=== PATIENT | female | born 1945 | race Caucasian/White ===

== ENCOUNTER 2018-10-26 08:06 | Inpatient (IN) | payer MEDICARE, BC ==
[2018-10-26] VITALS (10 sets, daily range): BP systolic 104–123; BP diastolic 52–81
[~2018-10-26] VITALS: Ht 160 cm; Wt 68.0 kg
[~2018-10-26 08:06] MED LIST: CEFAZOLIN SODIUM/DEXTROSE,ISO 50 ML IV ONE
[2018-10-26] MEDS ORDERED: ANESTHESIA TRAY IN PYXIS 1 EA TRAY MC ONE (08:54)
[2018-10-26] MEDS ORDERED: LIDOCAINE HCL/PF 1% 30 ML SDV ONE (08:54)
[2018-10-26] MEDS ORDERED: BACITRACIN 50000 UNITS/VIAL ONE (08:54)
[2018-10-26] MEDS ORDERED: BUPIVACAINE 0.5 % PF 150 MG/30 ML VIAL ONE (08:54)
[2018-10-26] MEDS ORDERED: BUPIVACAINE 0.25% 75 MG/30 ML VIAL ONE (09:53)
[2018-10-26] MEDS ORDERED: MIDAZOLAM HCL 2 MG/2ML VIAL ONE (09:53)
[2018-10-26] MEDS ORDERED: VASOPRESSIN INJ 20 UNIT/ML VIAL ONE (10:56)
[2018-10-26] MEDS ORDERED: ALBUMIN 25% 50 ML IV ONE ×2 (10:56→11:13)
[2018-10-26] MEDS ORDERED: TRANEXAMIC ACID 1,500 MG in IV NS 0.9% 50 ML IV ONE (11:00)
[2018-10-26] MEDS ORDERED: ALBUMIN 5% 250 ML IV ONE (11:11)
[2018-10-26] MEDS ORDERED: HYDROMORPHONE 1 MG/1 ML DISP.SYRIN IV PRN ×2 (13:00→13:30)
[2018-10-26] MEDS ORDERED: HYDROCODONE/APAP 10/325MG 1 EA TABLET PO PRN (13:00)
--- NOTE | 2018-10-26 13:00 | NUR ---
M/S RN - Assessment Received patient from recovery, A/O x 4, S/P Reverse left total shoulder arthroplasty by Dr. Johnson, left shoulder dressing is clean and dry, sling in place. Left arm is warm to touch, sensation is intact. Patient oriented to room and use of call light. Patient came in with no personal belongings. Skin assessment done and documented, photos taken. Patient independent with bed mobility. Saline lock on the right hand with no signs of infiltration. Post op orders noted and carried out. All needs anticipated and met. Possible discharge home tomorrow if stable.
[2018-10-26] MEDS ORDERED: ONDA4TAB5 PO (13:21)
[2018-10-26] MEDS ORDERED: CARI350T PO (13:21)
[2018-10-26] MEDS ORDERED: HYDR-4354 PO (13:23)
[2018-10-26] MEDS ORDERED: HYDR-4384 PO (13:23)
[2018-10-26] MEDS: ANCEF 1 GM/50 ML D5W IV SCH ×2 (17:15)
[2018-10-26] MEDS ORDERED: Z GUARD REMEDY 2 OZ OINT TP SCH (18:00)
[2018-10-26] MEDS: Z GUARD REMEDY 2 OZ OINT TP SCH (21:12)
[2018-10-26] MEDS: HYDROCODONE/APAP 5/325MG 1 EACH TABLET PO PRN (21:27)
[2018-10-26] MEDS: ONDANSETRON HCL/PF 4 MG/2 ML VIAL IV PRN (21:59)
--- NOTE | 2018-10-27 00:39 | NUR ---
MS RN NOTES PT C/O SEVERE PAIN AT L SHOULDER AND MUSCLE SPASMS. CALLED GERARDO RUSSELL MANAGER AUTO LAMINATING MACHINE OPERATOR HELPER FOR DR GARCIA. NOTIFIED HER RE PT'S CONDITION. PER MANAGER AUTO, VERIFY WITH PHARMACIST REPLACEMENT FOR MORPHINE COZ PT HAS ALLERGY TO MORPHINE AND CODEINE. SPOKE WITH PHARMACIST. OK TO GIVE DILAUDID PER PHARMACY. NO CROSS SENSITIVIY TO MORPHINE. MANAGER AUTO ORDERED DILAUDID 0.5 MG IV Q3 PRN SEVERE PAIN. NO ORDERS FOR MUSCLE SPASMS PER MANAGER AUTO. ORDERS NOTED AND CARRIED OUT. WILL CONTINUE TO MONITOR.
[2018-10-27] MEDS: ANCEF 1 GM/50 ML D5W IV SCH ×2 (00:43)
[2018-10-27] MEDS: HYDROMORPHONE INJ 0.5 MG/0.5 ML SYRINGE IV PRN ×5 (00:47→22:57)
--- NOTE | 2018-10-27 00:47 | NUR ---
MS RN NOTES PT REFUSING TO HAVE DILAUDID. PER PT, SHE HAD DILAUDID A WEEK AGO IN ANOTHER HOSPITAL AND SHE VOMITTED SEVERELY. WILL HAVE NORCO FOR NOW PER PT. WILL CONTINUE TO MONITOR.
[2018-10-27] MEDS: HYDROCODONE/APAP 5/325MG 1 EACH TABLET PO PRN ×5 (00:57→20:48)
[2018-10-27] MEDS: ONDANSETRON HCL/PF 4 MG/2 ML VIAL IV PRN ×3 (04:00→23:02)
--- NOTE | 2018-10-27 06:30 | NUR ---
MS RN NOTES AWAKE & RESPONSIVE. NOT IN ANY DISTRESS. NO SOB NOTED. DENIES ANY PAIN OR DISCOMFORT AT THIS TIME. WITH IV-HL PATENT & INTACT. MONITORED ACCORDINGLY. CALL LIGHT WITHIN REACH. BED IN LOWEST POSITION. SR UP X 3 WITH BED ALARM ON FOR SAFETY. WILL ENDORSE TO NEXT SHIFT.
--- NOTE | 2018-10-27 07:10 | NUR ---
MS RN OPENING NOTES RECEIVED PT IN BED AWAKE AND ALERT. NO S/S OF ACUTE DISTRESS OR SOB NOTED. LEFT ARM/SHOULDER IN SLING WITH AND ICE PACK ON. NO WEIGHT BEARING ON LEFT SIDE. NO COMPLAINTS OF PAIN NOTED AT THIS TIME. CALL LIGHT WITHIN REACH. WILL CONTINUE TO MONITOR.
[2018-10-27 07:30] VITALS: BP 146/73
[2018-10-27] MEDS: Z GUARD REMEDY 2 OZ OINT TP SCH ×2 (08:31→21:15)
[2018-10-27] MEDS ORDERED: CARISOPRODOL 350 MG TABLET PO SCH ×2 (11:00)
[2018-10-27] MEDS: CARISOPRODOL 350 MG TABLET PO SCH ×2 (11:09→17:16)
--- NOTE | 2018-10-27 18:00 | NUR ---
MS RN CLOSING NOTES PT A/O X4 IN BED AWAKE. PT GIVEN DILAUDID 1X FOR COMPLAINTS OF SEVERE PAIN OF LEFT SHOULDER, TOLERATED WELL. ZOFRAN GIVEN 1X. NEW ORDER FOR SOMA 350MG, TOLERATED WELL. NORCO 5/325 GIVEN 3X ON SHIFT TO CONTROL SHOULDER PAIN. HL IN RIGHT HAND G#22 PATENT AND INTACT. D/C HOME CANCELLED BY DR. GARCIA, WILL DO DAY TO DAY EVAL. CALL LIGHT WITHIN REACH. WILL ENDORSE TO ONCOMING NURSE FOR CONTINUED CARE.
--- NOTE | 2018-10-27 19:35 | NUR ---
MS RN NOTES RECEIVED ON BED A/O X4,BREATHING NORMAL,NOT IN ANY FORM DISTRESS.S/P LEFT SHOULDER ARTHROPLASTY,DRESSING INTACT AND DRY.SLING IN USED FOR IMMOBILIZER.WITH SALINE LOCK RIGHT HAND INTACT AND PATENT.PAIN TOLERABLE AT THE MOMENT.FAMILY MEMBERS AT BEDSIDE.CALL LIGHT IN REACH,NEEDS ANTICIPATED.
[2018-10-27 20:00] VITALS: BP 116/67
--- NOTE | 2018-10-27 20:48 | NUR ---
MS RN NOTES PAIN MANAGEMENT C/O LEFT SHOULDER PAIN 6/10 ON PAIN SCALE,MEDICATED WITH NORCO 5/325MG,1 TAB PER PATIENT REQUEST.
--- NOTE | 2018-10-27 22:57 | NUR ---
MS RN NOTES PAIN MANAGEMENT HAVING PAIN 8/10 ON PAIN SCALE,MEDICATED WITH DILAUDID 0.5MG IV ORDERED.
--- NOTE | 2018-10-27 23:02 | NUR ---
MS RN NOTES C/O NAUSEA,MEDICATED WITH ZOFRAN 4MG IV ORDERED.
[2018-10-28] MEDS: HYDROCODONE/APAP 5/325MG 1 EACH TABLET PO PRN (05:25)
--- NOTE | 2018-10-28 05:25 | NUR ---
MS RN NOTES C/O LEFT SHOULDER PAIN 6/10 ON PAIN SCALE,NORCO 5/325MG,1 TAB PO GIVEN PER PATIENT REQUEST
--- NOTE | 2018-10-28 06:24 | NUR ---
MS JOSEPH NOTES SLEPT WELL AT [facility],BREATHING REGULAR,ABDOMEN SLIGHTLY DISTENDED,STILL WITH ICTERIC SCLERA AND YELLOWISH SKIN COLOR.AMBULATORY.IN NO ACUTE DISTRESS.WILL ENDORSE TO DAY NURSE FOR MARY. Addendum: 10/28/18 at 0658 by MARIFER CASTRO RN WRONG ENTRY OF NOTES,NOT FOR THIS PATIENT.
--- NOTE | 2018-10-28 06:31 | NUR ---
MS RN NOTES ON BED SLEEPING DUE TO NORCO.PAIN MANAGEMENT EFFECTIVE,SLING IN USED ON RIGHT ARM FOR IMMOBILITY.ICE PACK IN PLACE.DVT PUMP IN USED.REDNESS TO SACRAL AREA MANAGE WITH REMEDY.SALINE LOCK REMAINS PATENT ON RIGHT HAND,POSSIBLE D/C HOME.IN NO ACUTE DISTRESS.WILL ENDORSE TO DAY NURSE FOR MARY.
--- NOTE | 2018-10-28 07:00 | NUR ---
MS RN OPENING NOTES RECEIVED PT SITTING IN BED AWAKE AND ALERT. NO S/S OF ACUTE DISTRESS OR SOB NOTED. LEFT ARM/SHOULDER IN SLING WITH AND ICE PACK ON. NO WEIGHT BEARING ON LEFT SIDE. NO COMPLAINTS OF PAIN NOTED AT THIS TIME. CALL LIGHT WITHIN REACH. WILL CONTINUE TO MONITOR.
[2018-10-28 08:00] VITALS: BP 95/60
[2018-10-28] MEDS: Z GUARD REMEDY 2 OZ OINT TP SCH ×2 (08:33→22:15)
[2018-10-28] MEDS: CARISOPRODOL 350 MG TABLET PO SCH ×3 (08:33→16:51)
--- NOTE | 2018-10-28 09:49 | NUR ---
WOUND CARE CONSULT: PT NOT SEEN YET FOR SKIN ASSESSMENT DUE TO PT SLEEPING SOUNDLY AT THIS TIME. CURRENT KASEY SCORE IS 20. PER NURSING STAFF, PT IS CONTINENT AND AMBULATES TO BATHROOM WITH ASSISTANCE. WILL SEE PRN.
[2018-10-28] MEDS ORDERED: oxyCODONE IR immediate release 5 MG PO PRN (12:30)
[2018-10-28] MEDS ORDERED: diphenhydrAMINE HCL 25 MG CAPSULE PO PRN (12:30)
[2018-10-28] MEDS: HYDROCODONE/APAP 10/325MG 1 EA TABLET PO PRN ×2 (15:32→19:12)
[2018-10-28 16:09] VITALS: BP 122/70
[2018-10-28] MEDS: FAMOTIDINE (20 MG) 20 MG TABLET PO SCH (16:51)
--- NOTE | 2018-10-28 18:49 | NUR ---
MS RN CLOSING NOTES PT A/O X4 IN BED AWAKE WITH FAMILY AT BEDSIDE. NORCO 10/325 GIVEN 1X ON SHIFT TO CONTROL MILD SHOULDER PAIN, TOLERATED WELL. HL IN RIGHT HAND G#22 PATENT AND INTACT. PT ABLE TO AMBULATE WITH ASSIST TO BATHROOM, AND TOLERATED AMBULATING AROUND [place]. DRESSING CHANGE TO BE DONE BY MD TOMORROW. PT TO BE D/C HOME TOMORROW IF PAIN IS UNDER CONTROL. CALL LIGHT WITHIN REACH. WILL ENDORSE TO ONCOMING NURSE FOR CONTINUED CARE.
--- NOTE | 2018-10-28 19:48 | NUR ---
RN OPENING NOTES RECEIVED REPORT FROM [facility] RN JAYDA/JOHN. FOUND Pt AWAKE RESTING IN BED. RESPIRATIONS EVEN AND UNLABORED. NO S/S OF ACUTE DISTRESS OR SOB NOTED. Pt IS A/OX4, VERBAL, ABLE TO MAKE NEEDS KNOWN. IV ACCESS ON RHAND #22G, SL. LT ARM IN SLING WITH ICE PACK. SAFETY MEASURES IN PLACE. BED LOW, LOCKED, HOB ELEVATED, SIDE RAILS UP, CALL LIGHT AND BEDSIDE TABLE WITHIN REACH. BED ALARM ON. WILL CONTINUE TO MONITOR Pt's CONDITION AND SAFETY THROUGHOUT THE NIGHT. PLAN FOR DC TOMORROW BACK HOME. TO CHANGE L ARM DRESSING TOMORROW BEFORE DC.
[2018-10-28 20:00] VITALS: BP 112/68
[2018-10-28] MEDS: ONDANSETRON HCL/PF 4 MG/2 ML VIAL IV PRN (23:40)
[2018-10-28] MEDS: HYDROMORPHONE 1 MG/1 ML DISP.SYRIN SQ PRN (23:43)
[2018-10-29] MEDS: HYDROCODONE/APAP 10/325MG 1 EA TABLET PO PRN ×2 (06:37→10:24)
--- NOTE | 2018-10-29 06:45 | NUR ---
RN NOTES Pt S/B DR DELONG IN THE AM. PER DR DELONG, SAID TO GIVE Pt HER SCHEDULED SOMA @0900, THEN ONE LAST DOSE OF THE NORCO-10 @1000, THEN ONE LAST SHOT OF DILAUDID 0.5MG SQ @1130 BEFORE HER DC HOME.
--- NOTE | 2018-10-29 06:55 | NUR ---
RN CLOSING NOTES NO SIGNIFICANT CHANGES IN Pt's CONDITION. Pt REMAINS STABLE PER BASELINE. Pt IS AWAKE IN BED. NO S/S OF ACUTE DISTRESS OR SOB NOTED DURING THE NIGHT. NO C/O N/V DURING THE SHIFT. ALL NEEDS MET AND ATTENDED TO. SAFETY MEASURES IN PLACE. BED LOW, LOCKED, HOB ELEVATED, SIDE RAILS UP, CALL LIGHT AND BEDSIDE TABLE WITHIN REACH. WILL ENDORSE TO DAYSHIFT RN FOR Pt's MARY.
[2018-10-29] MEDS ORDERED: PROMETHAZINE HCL 50 MG/ML AMPUL IM PRN (07:00)
[2018-10-29] MEDS ORDERED: MAG HYDROX/AL HYDROX/SIMETH 30 ML UDC PO PRN (07:00)
--- NOTE | 2018-10-29 07:39 | NUR ---
MS RN OPENING NOTES RECEIVED PATIENT AWAKE, ALERT AND ORIENTED X4. ON ROOM AIR, RESPIRATION EVEN, WITH NO SOB NOTED. ON IV SL TO R HAND 22G, INTACT AND PATENT. LEFT ARM/SHOULDER SLING NOTED IN PLACE. ON PAIN MANAGEMENT FOR S/P REVERSE TOTAL SHOULDER ARTHROPLASTY. PT ABLE TO ASK FOR ASSISTANCE. SAFETY MEASURES IN PLACE. BED IN LOW LOCKED POSITION WITH SR X2. WILL CONTINUE TO MONITOR.
[2018-10-29 08:09] VITALS: BP 97/67
[2018-10-29] MEDS: FAMOTIDINE (20 MG) 20 MG TABLET PO SCH (08:40)
[2018-10-29] MEDS: CARISOPRODOL 350 MG TABLET PO SCH (08:40)
[2018-10-29] MEDS ORDERED: DOCUSATE SODIUM 100 MG CAPSULE PO SCH (09:00)
[2018-10-29] MEDS: Z GUARD REMEDY 2 OZ OINT TP SCH (09:09)
[2018-10-29] MEDS: ONDANSETRON HCL/PF 4 MG/2 ML VIAL IV PRN (12:01)
[2018-10-29] MEDS: HYDROMORPHONE 1 MG/1 ML DISP.SYRIN SQ PRN (12:01)
--- NOTE | 2018-10-29 12:45 | NUR ---
MS MEDICAL TECHNICIAN NOTES PATIENT A/O X4, IN STABLE CONDITION. ON ROOM AIR, RESPIRATION EVEN. NOT IN ANY DISTRESS NOTED. NO DISCOMFORT STATED AT THIS TIME. TO DISCHARGE HOME. PICTURE TAKEN FOR SKIN ISSUES AND FILED ON THE CHART. REMOVED PIV, DRY DRESSING APPLIED TO RIGHT HAND. REVIEWED AND SIGNED DISCHARGE INSTRUCTIONS WITH THE PER PATIENT PREFERENCE AND DUE TO RECENT ADMINISTRATION OF DILAUDID FOR PAIN MANAGEMENT; WITNESSED BY DAUGHTER WELL. PRESCRIPTION FOR NORCO 10/325MG PRN AND SOMA 350MG BID PRN WRITTEN BY DR DELONG THIS MORNING WAS GIVEN TO THE SPOUSE. ALL NEEDS AND CARE PROVIDED. ALL BELONGINGS ACCOUNTED FOR AND SIGNED. MD AND CHARGE NURSE AWARE. PT LEFT THE UNIT AT 1245, ESCORTED TO THE LOBBY.
== END 2018-10-29 13:00 | disposition home or self-care (01) | DRG 483 ==
LOC: DS 08:06 → MED 12:46
PROC: 0RRK00Z Replacement of Left Shoulder Joint with Reverse Ball and Socket Synthetic Substitute, Open Approach (ICD-10-PCS; principal; 2018-10-26)
DX: S42.242A 4-part fracture of surgical neck of left humerus, initial encounter for closed fracture (principal); I10 Essential (primary) hypertension; Z88.5 Allergy status to narcotic agent; F41.9 Anxiety disorder, unspecified
CPT/HCPCS: 36415; 73020; 86850-TC; 87081-TC; 88305-TC; 88311-TC; A4216; A4217; A4565; A6253; A6402; C1713; G0378; J0690; J1100; J1170; J1885; J2250; J2370; J2405; J2550; J2704; J3490; J7050; J7060; J7120; P9045; P9047